=== PATIENT | female | born 1945 | race Caucasian/White ===

== ENCOUNTER 2020-12-10 20:54 | Emergency (ER) | payer MEDICARE, OTHER ==
[~2020-12-10 20:54] MED LIST: ASCORBIC ACID500 MG PO; ASPIRIN EC81 MG PO; COUMADIN 5MG TAB5 MG PO; COUMADIN3 MG PO; IBUPROFEN400 M1 PO; MICON-GUARD 2% TOP; NOVOLIN N100 UNIT/1 SC; ONDANSETRON HCL4 MG PO; PRILOSEC20 MG PO; TRIAMTERENE-HC1 EACH PO; TYLENOL #31 EACH PO; VITAMIN D-32000 UNI1 PO; ZESTRIL5 MG PO; ZOFRAN4 MG SL
[2020-12-10 23:39] LABS: BASOPHIL 0.5 % (0-2); EOSINOPHIL 0.7 % (0-7); HGB 13.2 g/dl (12.5-16.0); LYMPHOCYTE 8.5 % (15-48); MCH 29.5 pg (25.0-31.0); MCV 89.5 fL (78.0-100.0); MONOCYTE 4.5 % (0-12); MPV 10.6 fL (6.0-9.5); NEUTROPHIL 84.5 % (41-80); NRBC 0; PLT 267 K/uL (150-400); RBC 4.47 M/uL (4.20-5.40); RDW 12.8 % (11.5-14.0); WBC 14.7 K/uL (4.0-10.5)
[2020-12-10 23:52] LABS: INR 1.47 (0.9-1.2); PROTHROMBIN TIME 16.9 SECONDS (11.4-13.6)
[2020-12-11 00:01] LABS: ALBUMIN 3.3 g/dL (3.4-5.0); BILIRUBIN - TOTAL 0.4 mg/dL (0.2-1.0); BUN/CREAT RATIO (CALC) 26.3 RATIO; CREATININE 0.95 mg/dL (0.51-0.95); GLOBULIN (CALCULATION) 4.7 g/dL; POTASSIUM 4.8 mmol/L (3.5-5.1)
== END 2020-12-11 00:15 | disposition other institution (70) ==
LOC: FER 20:54
PROVIDERS: Emergency Medicine
DX: S32.011A Stable burst fracture of first lumbar vertebra, initial encounter for closed fracture (principal); S52.125A Nondisplaced fracture of head of left radius, initial encounter for closed fracture; I10 Essential (primary) hypertension; E11.9 Type 2 diabetes mellitus without complications; K21.9 Gastro-esophageal reflux disease without esophagitis; Z86.711 Personal history of pulmonary embolism; Z86.718 Personal history of other venous thrombosis and embolism; Z88.0 Allergy status to penicillin; Z79.01 Long term (current) use of anticoagulants; Z79.899 Other long term (current) drug therapy; W10.9XXA Fall (on) (from) unspecified stairs and steps, initial encounter
CPT/HCPCS: 36415; 72131; 73080; 80053; 85025; 85610; J1170; J2405

== ENCOUNTER 2022-03-29 18:46 | Emergency (ER) | payer MEDICARE, OTHER ==
[2022-03-29 19:41] LABS: BASOPHIL 0.9 % (0-2); EOSINOPHIL 2.6 % (0-7); HGB 12.5 g/dl (12.5-16.0); LYMPHOCYTE 16.1 % (15-48); MCH 28.8 pg (25.0-31.0); MCHC 32.9 g/dL (32.0-36.0); MCV 87.6 fL (78.0-100.0); MONOCYTE 6.2 % (0-12); MPV 10.7 fL (6.0-9.5); NEUTROPHIL 72.6 % (41-80); NRBC 0; PLT 283 K/uL (150-400); RBC 4.34 M/uL (4.20-5.40); RDW 12.8 % (11.5-14.0); WBC 12.7 K/uL (4.0-10.5)
[2022-03-29 19:53] LABS: INR 2.4 (0.9-1.2); PROTHROMBIN TIME 25.3 SECONDS (11.9-13.9)
[2022-03-29 20:02] LABS: BILIRUBIN - TOTAL 0.2 mg/dL (0.2-1.0); CREATININE 1.2 mg/dL (0.51-0.95); GLOBULIN (CALCULATION) 4.2 g/dL; POTASSIUM 4.4 mmol/L (3.5-5.1); TOTAL PROTEIN 7.2 g/dL (6.4-8.2)
[2022-03-29] MEDS ORDERED: ONDANSETRON HCL4 MG PO (20:37)
[2022-03-29] MEDS ORDERED: NORCO 5-325 TA1 EACH PO (20:37)
== END 2022-03-29 21:02 | disposition home or self-care (01) ==
LOC: FER 18:46
PROVIDERS: Emergency Medicine
DX: S42.102A Fracture of unspecified part of scapula, left shoulder, initial encounter for closed fracture (principal); S42.292A Other displaced fracture of upper end of left humerus, initial encounter for closed fracture; I10 Essential (primary) hypertension; W10.9XXA Fall (on) (from) unspecified stairs and steps, initial encounter; Y92.002 Bathroom of unspecified non-institutional (private) residence as the place of occurrence of the external cause
CPT/HCPCS: 36415; 73030; 73080; 80053; 85025; 85610; J1885; J2405